=== PATIENT | male | born 1960 | race Asian ===

== ENCOUNTER 2022-05-23 08:11 | Day surgery (SDC) | payer BC, OTHER ==
[2022-05-23] MEDS ORDERED: LACTATED RINGERS 1,000 ML IV ONE (08:49)
[2022-05-23] MEDS ORDERED: PROPOFOL 500 MG/50 ML 500 MG/50 ML VIAL ONE (09:25)
--- NOTE | 2022-05-23 09:57 | ANESTHESIA ---
Pre-Anesthesia VS, & Labs - Diagnosis screening exam - Procedure colonoscopy Vital Signs: Temp Pulse Resp BP Pulse Ox O2 Flow Rate 36.4 C L 66 11 L 146/106 H 100 05/23/22 08:26 05/23/22 08:26 05/23/22 08:26 05/23/22 08:26 05/23/22 08:26 Height: 5 ft 9 in Weight (kg): 84 kg Body Mass Index: 27.3 BMI Classification: Overweight - NPO >8 hours Home Medications and Allergies Losartan [Cozaar] 50 mg PO DAILY 01/13/15 hydroCHLOROthiazide [Hydrochlorothiazide] 12.5 mg PO DAILY 01/13/15 Allergies/Adverse Reactions: Allergies Allergy/AdvReac Type Severity Reaction Status Date / Time No Known Drug Allergies Allergy Verified 01/13/15 09:58 Anes History & Medical History - Anesthetic History Anesthesia Complications: reports: No previous complications - Medical History Cardiovascular: reports: Hypertension Pulmonary: reports: None Gastrointestinal: reports: None Urinary: reports: None Neuro: reports: None Musculoskeletal: reports: None Endocrine/Autoimmune: reports: None Skin: reports: None Smoking Status: Never smoker Psychosocial: reports: No issues indicated - Surgical History General: reports: Appendectomy Exam General: Alert, Oriented x3, Cooperative, No acute distress Dental: WNL Mouth Openin Fingerbreadth Neck Mobility: Normal Mallampati classification: III Thyromental Distance: 4-6 cm Mental/Cognitive Status: Alert/Oriented X3, Normal for patient Plan Anesthesia Type: General, Total IV Consent for Procedure(s) Verified and Reviewed: Yes Code Status: Attempt Resuscitation ASA classification: 2-Mild systemic disease Is this case an emergency?: No
[2022-05-23] MEDS ORDERED: LACTATED RINGERS 50 ML IV ONE (10:31)
[2022-05-23 10:53] VITALS: BP 110/80
--- NOTE | 2022-05-23 16:26 | ANESTHESIA POST OP EVALUATION ---
Anesthesia Post Eval - Post Anesthesia Eval Vitals: Last Vital Signs Temp 36.1 C L 05/23/22 10:52 Pulse 56 L 05/23/22 10:52 Resp 16 05/23/22 10:52 BP 110/80 05/23/22 10:52 Pulse Ox 99 05/23/22 10:52 O2 Flow Rate CV Function Including HR & BP: Stable Pain Control: Satisfactory Nausea & Vomiting: Negative Mental Status: Baseline Respiratory Status: Airway Patent Hydration Status: Satisfactory Anesthesia Complications: None
== END 2022-05-23 08:12 | disposition home or self-care (01) ==
LOC: SDS 08:11
PROVIDERS: ATTEND Surgery
DX: Z12.11 Encounter for screening for malignant neoplasm of colon (principal); K64.8 Other hemorrhoids; Z87.891 Personal history of nicotine dependence
CPT/HCPCS: 45378; J7120